=== PATIENT | female | born 2000 | race Caucasian/White ===

== ENCOUNTER 2022-01-06 15:30 | Emergency (ER) | payer MEDICAID ==
[~2022-01-06] VITALS: Ht 144.8 cm; Wt 60.6 kg
[2022-01-06 15:33] VITALS: BP 123/75
[2022-01-06 16:08] LABS: BASOPHILS % (AUTO) 0.4 % (0-1); EOSINOPHILS # (AUTO) 0.4 X10'3 (0-0.9); EOSINOPHILS % (AUTO) 4.1 % (0-6); HEMATOCRIT 39.5 % (35.0-45.0); HEMOGLOBIN 12.9 g/dl (12.0-16.0); LYMPHOCYTES # (AUTO) 2.2 X10'3 (1.1-4.8); LYMPHOCYTES % (AUTO) 22.1 % (21-51); MEAN CORPUSCULAR HEMOGLOBIN 28.5 PG (27.0-31.0); MEAN CORPUSCULAR HGB CONC 32.8 g/dL (33.0-36.5); MEAN CORPUSCULAR VOLUME 86.9 FL (78-98); MEAN PLATELET VOLUME 8.8 FL (7.4-10.4); MONOCYTES # (AUTO) 0.9 X10'3 (0-0.9); MONOCYTES % (AUTO) 8.6 % (2-12); NEUTROPHILS # (AUTO) 6.4 X10'3 (1.8-7.7); NEUTROPHILS % (AUTO) 64.8 % (42-75); PLATELET COUNT 267 X10'3 (140-440); RED BLOOD COUNT 4.54 X10'6 (4.20-5.60); RED CELL DISTRIBUTION WIDTH 14.8 % (11.5-14.5); WHITE BLOOD COUNT 9.9 X10'3 (4.5-11.0)
[2022-01-06 16:11] LABS: CLARITY,URINE SLIGHTLY CLOUDY (Clear); COLOR,URINE YELLOW (Yellow); GLUCOSE, URINE NEGATIVE (Neg); KETONES,URINE NEGATIVE (Neg); LEUKOCYTE ESTERASE ,URINE SMALL (Neg); NITRITES, URINE NEGATIVE (Neg); OCCULT BLOOD,URINE TRACE-INTACT (Neg); PROTEIN,URINE NEGATIVE (Neg); UROBILINOGEN,URINE 0.2 E.U/dL (0.2-1.0)
[2022-01-06 16:16] LABS: UA COLLECTION TYPE CLN CATCH MIDSTREAM
[2022-01-06 16:20] LABS: URINE HCG NEGATIVE (NEG)
[2022-01-06 16:27] LABS: HYALINE CASTS 0-3 /LPF (NEGATIVE); MUCUS STRANDS MODERATE /LPF (Neg); SQUAMOUS EPITHELIAL CELL,UR MODERATE /LPF (FEW)
[2022-01-06 16:28] LABS: BACTERIA,URINE FEW /HPF (Neg); WBC,URINE 20-30 /HPF (0-4)
[2022-01-06 16:31] LABS: ALANINE AMINOTRANSFERASE 43 U/L (12-78); ALBUMIN 3.8 G/DL (3.4-5.0); ALBUMIN/GLOBULIN RATIO 0.9 (1.1-1.5); ALKALINE PHOSPHATASE 83 IU/L (20-180); ANION GAP 11 (8-16); ASPARTATE AMINO TRANSFERASE 18 U/L (10-37); BILIRUBIN,TOTAL 0.2 MG/DL (0.1-1.0); BLOOD UREA NITROGEN 15 MG/DL (7-18); BUN/CREATININE RATIO 18.5 (6.6-38.0); CALCIUM 9.4 MG/DL (8.5-10.1); CHLORIDE 102 MMOL/L (99-107); CREATININE 0.81 MG/DL (0.40-0.90); GLUCOSE 99 MG/DL (70-104); LIPASE 148 U/L (73-393); POTASSIUM 3.7 MMOL/L (3.5-5.1); SODIUM 139 MMOL/L (135-145); TOTAL CARBON DIOXIDE 25.7 MMOL/L (24-32); TOTAL PROTEIN 8.2 G/DL (6.4-8.2); eGFR 90 ML/MIN
[2022-01-06] MEDS ORDERED: CEPH250T PO (16:43)
--- NOTE | 2022-01-06 16:56 | NUR ---
Pt given and understands d/c instructions. Ambulatory with a steady gait.
== END 2022-01-06 16:56 | disposition home or self-care (01) ==
LOC: ER 15:31
DX: N39.0 Urinary tract infection, site not specified (principal); Z88.0 Allergy status to penicillin; Z79.899 Other long term (current) drug therapy
CPT/HCPCS: 36415; 80053; 81001; 81025; 83690; 85025; 87088; 99283

== ENCOUNTER 2022-06-12 19:04 | Emergency (ER) | payer MEDICAID ==
[~2022-06-12] VITALS: Ht 144.8 cm; Wt 61.8 kg
[2022-06-12 19:44] VITALS: BP 104/67
[2022-06-12 20:17] LABS: URINE HCG NEGATIVE (NEG)
[2022-06-12 20:20] LABS: CLARITY,URINE CLEAR (Clear); COLOR,URINE YELLOW (Yellow); GLUCOSE, URINE NEGATIVE (Neg); KETONES,URINE NEGATIVE (Neg); LEUKOCYTE ESTERASE ,URINE NEGATIVE (Neg); NITRITES, URINE NEGATIVE (Neg); OCCULT BLOOD,URINE NEGATIVE (Neg); PH,URINE 5.5 (4.8-8.0); PROTEIN,URINE NEGATIVE (Neg); UROBILINOGEN,URINE 0.2 E.U/dL (0.2-1.0)
[2022-06-12 20:23] LABS: UA COLLECTION TYPE CLN CATCH MIDSTREAM
[2022-06-13] MEDS ORDERED: METR-159 PO (10:41)
== END 2022-06-12 21:27 | disposition left against medical advice (07) ==
LOC: ER 19:06
DX: N93.9 Abnormal uterine and vaginal bleeding, unspecified (principal); Z53.21 Procedure and treatment not carried out due to patient leaving prior to being seen by health care provider
CPT/HCPCS: 81003; 81025

== ENCOUNTER 2022-06-13 07:42 | Emergency (ER) | payer MEDICAID ==
[~2022-06-13] VITALS: Ht 144.8 cm; Wt 62.4 kg
[2022-06-13 07:47] VITALS: BP 103/74
[2022-06-13 08:47] LABS: CLARITY,URINE CLOUDY (Clear); COLOR,URINE YELLOW (Yellow); GLUCOSE, URINE NEGATIVE (Neg); KETONES,URINE NEGATIVE (Neg); LEUKOCYTE ESTERASE ,URINE SMALL (Neg); NITRITES, URINE NEGATIVE (Neg); OCCULT BLOOD,URINE SMALL (Neg); PROTEIN,URINE NEGATIVE (Neg); UROBILINOGEN,URINE 0.2 E.U/dL (0.2-1.0)
[2022-06-13 08:50] LABS: UA COLLECTION TYPE CLN CATCH MIDSTREAM
[2022-06-13 08:54] LABS: BACTERIA,URINE 3+ /HPF (Neg); MUCUS STRANDS FEW /LPF (Neg); WBC,URINE 30-50 /HPF (0-4)
[2022-06-13 08:58] LABS: SQUAMOUS EPITHELIAL CELL,UR MANY /LPF (FEW)
[2022-06-13] MEDS ORDERED: CefTRIAXone 500MG IM Kit w/LIDOcaine IM ONE (10:40)
[2022-06-13] MEDS ORDERED: metroNIDAZOLE 500mg tablet PO ONE (10:40)
[2022-06-13] MEDS ORDERED: azithromycin 250mg tablet PO ONE (10:40)
[2022-06-13] MEDS ORDERED: METR-159 PO (10:41)
== END 2022-06-13 11:08 | disposition home or self-care (01) ==
LOC: ER 07:42
DX: A64 Unspecified sexually transmitted disease (principal); R10.2 Pelvic and perineal pain; Z87.440 Personal history of urinary (tract) infections; Z88.0 Allergy status to penicillin; Z79.899 Other long term (current) drug therapy
CPT/HCPCS: 36415; 81001; 87210; 87491; 87591; 96372; 99283; J0696; Q0112; 29105

== ENCOUNTER 2022-11-25 17:14 | Emergency (ER) | payer MEDICAID ==
[~2022-11-25] VITALS: Ht 144.8 cm; Wt 61.4 kg
[2022-11-25 17:40] VITALS: BP 118/70
[2022-11-25] MEDS: carbamide peroxide 15ml bottle RIGHT EAR SCH ×2 (19:19→19:59)
== END 2022-11-25 20:48 | disposition home or self-care (01) ==
LOC: ER 17:15
DX: J02.9 Acute pharyngitis, unspecified (principal); H61.21 Impacted cerumen, right ear; Z88.0 Allergy status to penicillin; Z79.899 Other long term (current) drug therapy
CPT/HCPCS: 87081; 87880; 99283

== ENCOUNTER 2022-12-03 14:02 | Emergency (ER) | payer MEDICAID ==
[~2022-12-03] VITALS: Ht 365.8 cm; Wt 62.0 kg
[2022-12-03 14:18] VITALS: BP 112/73
[2022-12-03] MEDS ORDERED: PRED50TA PO (14:43)
[2022-12-03] MEDS ORDERED: IBUP-1985 PO (14:43)
[2022-12-03] MEDS ORDERED: CLIN-97 PO (14:43)
== END 2022-12-03 14:59 | disposition home or self-care (01) ==
LOC: ER 14:02
DX: J02.9 Acute pharyngitis, unspecified (principal); Z88.0 Allergy status to penicillin; Z87.448 Personal history of other diseases of urinary system; Z79.899 Other long term (current) drug therapy
CPT/HCPCS: 99283

== ENCOUNTER 2022-12-11 13:15 | Emergency (ER) | payer MEDICAID ==
[~2022-12-11] VITALS: Ht 144.8 cm; Wt 63.6 kg
[~2022-12-11 13:15] MED LIST: CLIN-97 PO; IBUP-1985 PO; PRED50TA PO
[2022-12-11 13:33] VITALS: BP 116/79
[2022-12-11] MEDS ORDERED: FLUC150T PO ×3 (14:23→14:39)
[2022-12-11] MEDS ORDERED: CEFD300C3 PO ×3 (14:23→14:39)
== END 2022-12-11 15:04 | disposition home or self-care (01) ==
LOC: ER 13:15
DX: N76.89 Other specified inflammation of vagina and vulva (principal); J02.9 Acute pharyngitis, unspecified; R10.9 Unspecified abdominal pain; Z88.0 Allergy status to penicillin; Z79.899 Other long term (current) drug therapy
CPT/HCPCS: 99283